=== PATIENT | male | born 1950 | race Hispanic/Latino ===

== ENCOUNTER → 2019-02-21 | Outpatient (CLI) | payer OTHER ==
[~2019-02-21] MED LIST: LISI2.5T2 PO; METF-445 PO; PRAV20TA4 PO
== END | disposition home or self-care (01) ==
LOC: SHCH 10:32
PROVIDERS: ATTEND Internal Medicine Cardiovascular Disease
DX: I65.23 Occlusion and stenosis of bilateral carotid arteries (principal); I25.10 Atherosclerotic heart disease of native coronary artery without angina pectoris
CPT/HCPCS: 93880

== ENCOUNTER 2021-11-07 20:54 | Inpatient (IN) | payer OTHER ==
[~2021-11-07] VITALS: Ht 177.8 cm; Wt 78.9 kg
[~2021-11-07 20:54] MED LIST changes: +LISI2.5T13 PO; -LISI2.5T2 PO
[2021-11-07 21:30] LABS: BASOPHILS % (AUTO) 0.4 % (0.0-5.0); EOSINOPHILS % (AUTO) 2.6 % (0.0-8.0); HEMATOCRIT 38.2 % (42-54); LYMPHOCYTES % (AUTO) 19.2 % (21.0-51.0); MEAN CORPUSCULAR HEMOGLOBIN 28.3 pg (27.0-33.0); MEAN CORPUSCULAR HGB CONC 31.2 g/dL (32.0-36.0); MONOCYTES % (AUTO) 9.2 % (3.0-13.0); NEUTROPHILS % (AUTO) 68.3 % (40.0-77.0); PLATELET COUNT (AUTO) 243 K/uL (130-400); RED CELL DISTRIBUTION WIDTH 13.6 % (11.0-15.5); WHITE BLOOD COUNT (AUTO) 10.2 K/uL (4.8-10.8)
[2021-11-07 21:46] LABS: INR 0.99 (0.85-1.15); PROTHROMBIN TIME 10.8 SEC (9.6-11.6)
[2021-11-07 21:47] LABS: CREATININE 1.2 mg/dL (0.5-1.5); POTASSIUM 4.1 mmol/L (3.5-5.1)
[2021-11-07 21:48] LABS: PARTIAL THROMBOPLASTIN TIME 27.6 SEC (26.3-35.5)
[2021-11-07 21:49] LABS: ALBUMIN 3.4 g/dL (3.5-5.0); BILIRUBIN,TOTAL 0.3 mg/dL (0.2-1.0)
[2021-11-07] MEDS ORDERED: ZOSYN 3.375GM +NS 50ML IV ONE (22:30)
[2021-11-07] MEDS ORDERED: 0.9%NACL 1000ML 1,000 ML IV ONE (22:30)
[2021-11-07] MEDS ORDERED: HYDROMORPHONE 1 MG INJ IVP PRN (23:00)
[2021-11-07] MEDS ORDERED: HYDRALAZINE 20MG/ML VIAL IV PRN (23:00)
[2021-11-07] MEDS ORDERED: ACETAMINOPHEN 325 MG TAB PO PRN (23:00)
[2021-11-07] MEDS ORDERED: ALBUTEROL 0.083% 2.5 MG/3 ML INH IH PRN (23:00)
[2021-11-07] MEDS ORDERED: DOCUSATE SODIUM 100 MG CAP PO PRN (23:00)
[2021-11-07] MEDS: ZOSYN 3.375GM +NS 50ML IV SCH (23:00)
[2021-11-07] MEDS ORDERED: ONDANSETRON 4MG INJ IVP PRN (23:00)
[2021-11-07] MEDS ORDERED: ACETAMINOPHEN 650 MG SUPPOSITORY RC PRN (23:00)
[2021-11-07] MEDS ORDERED: LACTULOSE 20 GM/30 ML UDCUP PO PRN (23:00)
[2021-11-07] MEDS: PHARMACY COMMUNICATION MISC SCH (23:30)
[2021-11-07] MEDS: 0.9%NACL 1000ML 1,000 ML IV SCH (23:45)
[2021-11-08] MEDS: INSULIN LISPRO 100 UNIT/ML 3ML SQ SCH ×4 (07:30→21:23)
[2021-11-08] MEDS: ZOSYN 3.375GM +NS 50ML IV SCH ×3 (07:36→23:33)
[2021-11-08] MEDS: ENOXAPARIN SODIUM 30 MG/0.3 ML SQ SCH (08:57)
[2021-11-08 09:19] LABS: HEMATOCRIT 37.5 % (42-54); MEAN CORPUSCULAR HEMOGLOBIN 29.4 pg (27.0-33.0); MEAN CORPUSCULAR HGB CONC 31.7 g/dL (32.0-36.0); MEAN CORPUSCULAR VOLUME 92.6 fL (79-99); RED BLOOD CELL COUNT(AUTO) 4.05 MIL/uL (4.50-6.20); RED CELL DISTRIBUTION WIDTH 13.5 % (11.0-15.5); WHITE BLOOD COUNT (AUTO) 9.9 K/uL (4.8-10.8)
[2021-11-08 09:20] VITALS: BP 136/62
[2021-11-08 09:32] LABS: CREATININE 0.9 mg/dL (0.5-1.5); MAGNESIUM 1.9 mg/dL (1.80-2.40); PHOSPHORUS 3.1 mg/dL (2.5-4.9); POTASSIUM 4.1 mmol/L (3.5-5.1)
[2021-11-08] MEDS: PHARMACY COMMUNICATION MISC SCH ×2 (11:30→23:30)
[2021-11-08 12:00] VITALS: BP 136/66
[2021-11-08] MEDS: CLINDAMYCIN IVPB 600MG/50ML 50 ML IV SCH ×2 (12:06→18:58)
[2021-11-08] MEDS: 0.9%NACL 1000ML 1,000 ML IV SCH (12:20)
[2021-11-08 16:00] VITALS: BP 117/82
[2021-11-08 20:20] VITALS: BP 119/68
[2021-11-08] MEDS ORDERED: VANCOMYCIN 1G 1.25 GM in 0.9% NACL 250ML 250 ML IVPB SCH (21:00)
[2021-11-08] MEDS ORDERED: VANCOMYCIN 1.25 GM/250 ML BAG 250 ML IV SCH (21:00)
[2021-11-09 00:20] VITALS: BP 120/63
[2021-11-09 04:20] VITALS: BP 134/69
[2021-11-09 05:40] LABS: BASOPHILS % (AUTO) 0.3 % (0.0-5.0); EOSINOPHILS % (AUTO) 2.6 % (0.0-8.0); HEMATOCRIT 34.1 % (42-54); LYMPHOCYTES % (AUTO) 13.8 % (21.0-51.0); MEAN CORPUSCULAR HEMOGLOBIN 28.1 pg (27.0-33.0); MEAN CORPUSCULAR HGB CONC 31.1 g/dL (32.0-36.0); MEAN CORPUSCULAR VOLUME 90.5 fL (79-99); MONOCYTES % (AUTO) 9.5 % (3.0-13.0); NEUTROPHILS % (AUTO) 73.6 % (40.0-77.0); PLATELET COUNT (AUTO) 229 K/uL (130-400); RED BLOOD CELL COUNT(AUTO) 3.77 MIL/uL (4.50-6.20); RED CELL DISTRIBUTION WIDTH 13.4 % (11.0-15.5); WHITE BLOOD COUNT (AUTO) 8.8 K/uL (4.8-10.8)
[2021-11-09 06:04] LABS: ALBUMIN 2.6 g/dL (3.5-5.0); BILIRUBIN,TOTAL 0.5 mg/dL (0.2-1.0); CREATININE 0.9 mg/dL (0.5-1.5); MAGNESIUM 1.9 mg/dL (1.80-2.40); PHOSPHORUS 3.4 mg/dL (2.5-4.9); POTASSIUM 4.1 mmol/L (3.5-5.1); TOTAL PROTEIN, SERUM 6.9 g/dL (6.0-8.3)
[2021-11-09] MEDS: INSULIN LISPRO 100 UNIT/ML 3ML SQ SCH ×4 (06:05→20:30)
[2021-11-09] MEDS: 0.9%NACL 1000ML 1,000 ML IV SCH ×2 (06:31→15:00)
[2021-11-09] MEDS: ZOSYN 3.375GM +NS 50ML IV SCH ×2 (06:48→15:36)
[2021-11-09 08:00] VITALS: BP 132/62
[2021-11-09] MEDS: ENOXAPARIN SODIUM 30 MG/0.3 ML SQ SCH (10:01)
[2021-11-09] MEDS ORDERED: ATOR40TA71 PO (10:11)
[2021-11-09] MEDS ORDERED: METO-409 PO (10:11)
[2021-11-09] MEDS ORDERED: LISI40TA9 PO (10:11)
[2021-11-09] MEDS ORDERED: AMLO-258 PO (10:11)
[2021-11-09] MEDS ORDERED: EMPA10TA PO (10:11)
[2021-11-09] MEDS ORDERED: METF-446 PO (10:11)
[2021-11-09] MEDS: PHARMACY COMMUNICATION MISC SCH ×2 (11:30→23:30)
[2021-11-09 11:53] VITALS: BP 129/64
[2021-11-09] MEDS ORDERED: GADOTERATE MEGLUMINE 10 MMOL/20 ML VIAL IV ONE (13:50)
[2021-11-09] MEDS ORDERED: 0.9% NACL 250ML 250 ML IV SCH ×2 (13:59→22:00)
[2021-11-09] MEDS ORDERED: VANCOMYCIN 750MG VIAL IVPB SCH ×2 (14:00→22:00)
[2021-11-09 16:00] VITALS: BP 159/81
[2021-11-09 20:20] VITALS: BP 130/75
[2021-11-10] MEDS: ZOSYN 3.375GM +NS 50ML IV SCH ×4 (00:13→22:54)
[2021-11-10 00:20] VITALS: BP 129/67
[2021-11-10] MEDS ORDERED: VANCOMYCIN 750MG VIAL IVPB SCH (03:30)
[2021-11-10] MEDS ORDERED: 0.9% NACL 250ML 250 ML IV SCH (03:30)
[2021-11-10] MEDS ORDERED: 0.9% NACL 250ML IVPB SCH (03:30)
[2021-11-10] MEDS ORDERED: VANCOMYCIN 750MG VIAL ONE (04:05)
[2021-11-10 04:24] VITALS: BP 119/63
[2021-11-10 04:56] LABS: BASOPHILS % (AUTO) 0.4 % (0.0-5.0); EOSINOPHILS % (AUTO) 2.4 % (0.0-8.0); HEMATOCRIT 36.7 % (42-54); LYMPHOCYTES % (AUTO) 14.3 % (21.0-51.0); MEAN CORPUSCULAR HEMOGLOBIN 28.8 pg (27.0-33.0); MEAN CORPUSCULAR HGB CONC 32.2 g/dL (32.0-36.0); MEAN CORPUSCULAR VOLUME 89.5 fL (79-99); MONOCYTES % (AUTO) 9.9 % (3.0-13.0); NEUTROPHILS % (AUTO) 72.4 % (40.0-77.0); PLATELET COUNT (AUTO) 259 K/uL (130-400); RED CELL DISTRIBUTION WIDTH 13.3 % (11.0-15.5); WHITE BLOOD COUNT (AUTO) 9.6 K/uL (4.8-10.8)
[2021-11-10 05:10] LABS: ALBUMIN 2.7 g/dL (3.5-5.0); BILIRUBIN,TOTAL 0.5 mg/dL (0.2-1.0); CREATININE 0.9 mg/dL (0.5-1.5); MAGNESIUM 1.8 mg/dL (1.80-2.40); PHOSPHORUS 3.8 mg/dL (2.5-4.9); POTASSIUM 4.1 mmol/L (3.5-5.1); TOTAL PROTEIN, SERUM 7.4 g/dL (6.0-8.3)
[2021-11-10] MEDS: INSULIN LISPRO 100 UNIT/ML 3ML SQ SCH ×4 (06:34→20:41)
[2021-11-10 07:30] VITALS: BP 136/66
[2021-11-10] MEDS: ENOXAPARIN SODIUM 30 MG/0.3 ML SQ SCH (10:26)
[2021-11-10] MEDS: PHARMACY COMMUNICATION MISC SCH ×2 (10:37→10:38)
[2021-11-10 11:00] VITALS: BP 140/65
[2021-11-10] MEDS: 0.9%NACL 1000ML 1,000 ML IV SCH ×2 (15:54→16:41)
[2021-11-10 16:00] VITALS: BP 136/68
[2021-11-10] MEDS: HYDROCODONE/ACETAMINOPHEN 5/325 MG TAB PO PRN (16:00)
[2021-11-10 20:03] VITALS: BP 149/75
[2021-11-11] VITALS (15 sets, daily range): BP systolic 105–148; BP diastolic 67–101
[2021-11-11 04:47] LABS: BASOPHILS % (AUTO) 0.2 % (0.0-5.0); EOSINOPHILS % (AUTO) 1.6 % (0.0-8.0); HEMATOCRIT 36.8 % (42-54); LYMPHOCYTES % (AUTO) 11.3 % (21.0-51.0); MEAN CORPUSCULAR HEMOGLOBIN 27.9 pg (27.0-33.0); MEAN CORPUSCULAR VOLUME 90.2 fL (79-99); MONOCYTES % (AUTO) 10.2 % (3.0-13.0); NEUTROPHILS % (AUTO) 76.1 % (40.0-77.0); PLATELET COUNT (AUTO) 250 K/uL (130-400); RED BLOOD CELL COUNT(AUTO) 4.08 MIL/uL (4.50-6.20); RED CELL DISTRIBUTION WIDTH 13.2 % (11.0-15.5); WHITE BLOOD COUNT (AUTO) 9.8 K/uL (4.8-10.8)
[2021-11-11 04:59] LABS: INR 1.02 (0.85-1.15); PROTHROMBIN TIME 11.1 SEC (9.6-11.6)
[2021-11-11 05:08] LABS: ALBUMIN 2.6 g/dL (3.5-5.0); BILIRUBIN,TOTAL 0.4 mg/dL (0.2-1.0); CREATININE 1.1 mg/dL (0.5-1.5); PHOSPHORUS 3.9 mg/dL (2.5-4.9); POTASSIUM 3.9 mmol/L (3.5-5.1); TOTAL PROTEIN, SERUM 7.2 g/dL (6.0-8.3)
[2021-11-11] MEDS: INSULIN LISPRO 100 UNIT/ML 3ML SQ SCH ×4 (07:30→21:00)
[2021-11-11] MEDS: ZOSYN 3.375GM +NS 50ML IV SCH ×3 (08:29→23:33)
[2021-11-11] MEDS: 0.9%NACL 1000ML 1,000 ML IV SCH (08:29)
[2021-11-11] MEDS: VANCOMYCIN 750MG VIAL IVPB SCH ×2 (09:00→21:55)
[2021-11-11] MEDS: ASPIRIN 81MG CHEW TAB PO SCH (09:00)
[2021-11-11] MEDS: ENOXAPARIN SODIUM 30 MG/0.3 ML SQ SCH (09:00)
[2021-11-11] MEDS ORDERED: 0.9% NACL 250ML 250 ML IV SCH (10:00)
[2021-11-11] MEDS ORDERED: MIDAZOLAM HCL 1 MG/ML 2ML VIAL ONE (14:11)
[2021-11-11] MEDS ORDERED: NITROGLYCERIN 50MG VIAL ONE (14:11)
[2021-11-11] MEDS ORDERED: FENTANYL CITRATE PF 50 MCG/1 ML 2ML VIAL ONE (14:11)
[2021-11-11] MEDS ORDERED: HEPARIN 10,000 UNIT/10ML (1,000 UNIT/ML) VIAL ONE (14:11)
[2021-11-11] MEDS ORDERED: LIDOCAINE HCL 400MG/20ML VIAL ONE (14:12)
[2021-11-11] MEDS ORDERED: IODIXANOL 320 MG/ML 100 ML VIAL ONE (15:09)
[2021-11-11] MEDS ORDERED: LABETALOL 20MG VIAL IV ONE (15:20)
[2021-11-11] MEDS ORDERED: IOHEXOL-350 50ML VIAL IV ONE (15:52)
[2021-11-11] MEDS ORDERED: 0.9%NACL 1000ML 1,000 ML IV SCH (16:30)
[2021-11-11] MEDS ORDERED: NITROGLYCERIN 0.4 MG SL TAB SL PRN (16:30)
[2021-11-11] MEDS: HYDROCODONE/ACETAMINOPHEN 5/325 MG TAB PO PRN (18:08)
[2021-11-11] MEDS: ATORVASTATIN 40 MG TABLET PO SCH (21:54)
[2021-11-12 03:09] VITALS: BP 113/61
[2021-11-12 04:59] LABS: BASOPHILS % (AUTO) 0.2 % (0.0-5.0); EOSINOPHILS % (AUTO) 1.2 % (0.0-8.0); HEMATOCRIT 34.1 % (42-54); LYMPHOCYTES % (AUTO) 13.6 % (21.0-51.0); MEAN CORPUSCULAR HEMOGLOBIN 29.2 pg (27.0-33.0); MEAN CORPUSCULAR HGB CONC 32.6 g/dL (32.0-36.0); MEAN CORPUSCULAR VOLUME 89.7 fL (79-99); MONOCYTES % (AUTO) 11.7 % (3.0-13.0); NEUTROPHILS % (AUTO) 72.6 % (40.0-77.0); PLATELET COUNT (AUTO) 262 K/uL (130-400); RED CELL DISTRIBUTION WIDTH 13.4 % (11.0-15.5); WHITE BLOOD COUNT (AUTO) 9.7 K/uL (4.8-10.8)
[2021-11-12 05:20] LABS: ALBUMIN 2.4 g/dL (3.5-5.0); POTASSIUM 3.8 mmol/L (3.5-5.1)
[2021-11-12 05:34] LABS: BILIRUBIN,TOTAL 0.4 mg/dL (0.2-1.0)
[2021-11-12 07:28] VITALS: BP 133/64
[2021-11-12] MEDS: INSULIN LISPRO 100 UNIT/ML 3ML SQ SCH ×4 (07:30→21:00)
[2021-11-12] MEDS: ZOSYN 3.375GM +NS 50ML IV SCH ×3 (10:04→23:58)
[2021-11-12] MEDS: VANCOMYCIN 750MG VIAL IVPB SCH ×2 (10:04→22:15)
[2021-11-12] MEDS: ENOXAPARIN SODIUM 30 MG/0.3 ML SQ SCH (10:05)
[2021-11-12] MEDS: AMLODIPINE 5 MG TAB PO SCH (10:05)
[2021-11-12] MEDS: LISINOPRIL 40 MG TABLET PO SCH (10:06)
[2021-11-12] MEDS: ASPIRIN 81MG CHEW TAB PO SCH (10:06)
[2021-11-12] MEDS: METOPROLOL SUCCINATE 50 MG TAB.SR.24H PO SCH ×2 (10:06→22:16)
[2021-11-12 11:16] VITALS: BP 165/71
[2021-11-12] MEDS: HYDROCODONE/ACETAMINOPHEN 5/325 MG TAB PO PRN (11:47)
[2021-11-12 15:30] VITALS: BP 114/61
[2021-11-12] MEDS: 0.9%NACL 1000ML 1,000 ML IV SCH (18:49)
[2021-11-12 20:00] VITALS: BP 137/60
[2021-11-12] MEDS: ATORVASTATIN 40 MG TABLET PO SCH (22:16)
[2021-11-12 23:59] VITALS: BP 140/68
[2021-11-13 04:00] VITALS: BP 125/69
[2021-11-13 05:23] LABS: HEMATOCRIT 32.9 % (42-54); MEAN CORPUSCULAR HGB CONC 30.7 g/dL (32.0-36.0); MEAN CORPUSCULAR VOLUME 91.1 fL (79-99); RED BLOOD CELL COUNT(AUTO) 3.61 MIL/uL (4.50-6.20); RED CELL DISTRIBUTION WIDTH 13.2 % (11.0-15.5); WHITE BLOOD COUNT (AUTO) 9.7 K/uL (4.8-10.8)
[2021-11-13 05:36] LABS: CREATININE 0.9 mg/dL (0.5-1.5); POTASSIUM 3.5 mmol/L (3.5-5.1)
[2021-11-13 05:49] LABS: HEMOGLOBIN A1C 7.6 % (4.0-6.0)
[2021-11-13] MEDS: INSULIN LISPRO 100 UNIT/ML 3ML SQ SCH ×4 (07:30→20:24)
[2021-11-13 08:00] VITALS: BP 139/64
[2021-11-13] MEDS: ZOSYN 3.375GM +NS 50ML IV SCH ×2 (08:30→17:54)
[2021-11-13] MEDS: ASPIRIN 81MG CHEW TAB PO SCH (08:34)
[2021-11-13] MEDS: LISINOPRIL 40 MG TABLET PO SCH (08:35)
[2021-11-13] MEDS: METOPROLOL SUCCINATE 50 MG TAB.SR.24H PO SCH ×2 (08:36→20:20)
[2021-11-13] MEDS: AMLODIPINE 5 MG TAB PO SCH (08:36)
[2021-11-13] MEDS: ENOXAPARIN SODIUM 30 MG/0.3 ML SQ SCH (08:37)
[2021-11-13] MEDS: VANCOMYCIN 750MG VIAL IVPB SCH ×2 (08:44→20:20)
[2021-11-13 12:00] VITALS: BP 112/51
[2021-11-13 15:58] VITALS: BP 122/57
[2021-11-13 20:00] VITALS: BP 120/50
[2021-11-13] MEDS: ATORVASTATIN 40 MG TABLET PO SCH (20:20)
[2021-11-13] MEDS: 0.9%NACL 1000ML 1,000 ML IV SCH (20:21)
[2021-11-14] VITALS: BP 126/54
[2021-11-14] MEDS: ZOSYN 3.375GM +NS 50ML IV SCH ×4 (02:33→22:09)
[2021-11-14 04:00] VITALS: BP 120/52
[2021-11-14 04:57] LABS: PROTHROMBIN TIME 10.9 SEC (9.6-11.6)
[2021-11-14 05:07] LABS: BASOPHILS % (AUTO) 0.2 % (0.0-5.0); EOSINOPHILS % (AUTO) 4.2 % (0.0-8.0); LYMPHOCYTES % (AUTO) 15.4 % (21.0-51.0); MEAN CORPUSCULAR HEMOGLOBIN 27.9 pg (27.0-33.0); MEAN CORPUSCULAR HGB CONC 30.6 g/dL (32.0-36.0); MEAN CORPUSCULAR VOLUME 91.2 fL (79-99); MONOCYTES % (AUTO) 8.9 % (3.0-13.0); NEUTROPHILS % (AUTO) 70.6 % (40.0-77.0); PLATELET COUNT (AUTO) 261 K/uL (130-400); RED BLOOD CELL COUNT(AUTO) 3.51 MIL/uL (4.50-6.20); RED CELL DISTRIBUTION WIDTH 13.2 % (11.0-15.5); WHITE BLOOD COUNT (AUTO) 8.5 K/uL (4.8-10.8)
[2021-11-14 05:14] LABS: BILIRUBIN,TOTAL 0.3 mg/dL (0.2-1.0); POTASSIUM 3.6 mmol/L (3.5-5.1); TOTAL PROTEIN, SERUM 6.3 g/dL (6.0-8.3)
[2021-11-14] MEDS: INSULIN LISPRO 100 UNIT/ML 3ML SQ SCH ×4 (06:17→21:58)
[2021-11-14 08:00] VITALS: BP 152/63
[2021-11-14] MEDS: ENOXAPARIN SODIUM 30 MG/0.3 ML SQ SCH (10:28)
[2021-11-14] MEDS: METOPROLOL SUCCINATE 50 MG TAB.SR.24H PO SCH ×2 (10:28→21:37)
[2021-11-14] MEDS: AMLODIPINE 5 MG TAB PO SCH (10:29)
[2021-11-14] MEDS: ASPIRIN 81MG CHEW TAB PO SCH (10:29)
[2021-11-14] MEDS: LISINOPRIL 40 MG TABLET PO SCH (10:30)
[2021-11-14] MEDS: VANCOMYCIN 750MG VIAL IVPB SCH ×2 (10:36→22:08)
[2021-11-14 12:00] VITALS: BP 140/57
[2021-11-14 16:00] VITALS: BP 136/62
[2021-11-14 20:00] VITALS: BP 132/59
[2021-11-14] MEDS: ATORVASTATIN 40 MG TABLET PO SCH (21:37)
[2021-11-15] VITALS: BP 145/64
[2021-11-15 04:23] VITALS: BP 173/75
[2021-11-15] MEDS: INSULIN LISPRO 100 UNIT/ML 3ML SQ SCH ×4 (06:57→21:00)
[2021-11-15] MEDS: ZOSYN 3.375GM +NS 50ML IV SCH ×2 (06:57→15:52)
[2021-11-15 08:00] VITALS: BP 149/65
[2021-11-15] MEDS: ASPIRIN 81MG CHEW TAB PO SCH (09:28)
[2021-11-15] MEDS: ENOXAPARIN SODIUM 30 MG/0.3 ML SQ SCH (09:28)
[2021-11-15] MEDS: AMLODIPINE 5 MG TAB PO SCH (09:30)
[2021-11-15] MEDS: METOPROLOL SUCCINATE 50 MG TAB.SR.24H PO SCH ×2 (09:32→21:53)
[2021-11-15] MEDS: VANCOMYCIN 750MG VIAL IVPB SCH ×2 (09:33→21:53)
[2021-11-15] MEDS: LISINOPRIL 40 MG TABLET PO SCH (11:45)
[2021-11-15 12:00] VITALS: BP 128/63
[2021-11-15 16:00] VITALS: BP 132/67
[2021-11-15 19:45] VITALS: BP 118/71
[2021-11-15] MEDS: ATORVASTATIN 40 MG TABLET PO SCH (21:53)
[2021-11-16] VITALS (7 sets, daily range): BP systolic 118–145; BP diastolic 49–75
[2021-11-16] MEDS: ZOSYN 3.375GM +NS 50ML IV SCH ×3 (00:38→15:20)
[2021-11-16 05:36] LABS: BASOPHILS % (AUTO) 0.4 % (0.0-5.0); EOSINOPHILS % (AUTO) 4.6 % (0.0-8.0); LYMPHOCYTES % (AUTO) 15.4 % (21.0-51.0); MEAN CORPUSCULAR HEMOGLOBIN 28.7 pg (27.0-33.0); MEAN CORPUSCULAR HGB CONC 32.7 g/dL (32.0-36.0); MONOCYTES % (AUTO) 9.1 % (3.0-13.0); PLATELET COUNT (AUTO) 281 K/uL (130-400); RED BLOOD CELL COUNT(AUTO) 3.41 MIL/uL (4.50-6.20); RED CELL DISTRIBUTION WIDTH 13.2 % (11.0-15.5); WHITE BLOOD COUNT (AUTO) 8.4 K/uL (4.8-10.8)
[2021-11-16] MEDS: INSULIN LISPRO 100 UNIT/ML 3ML SQ SCH ×4 (06:08→21:03)
[2021-11-16 06:12] LABS: ALBUMIN 2.1 g/dL (3.5-5.0); BILIRUBIN,TOTAL 0.3 mg/dL (0.2-1.0); CREATININE 0.8 mg/dL (0.5-1.5); POTASSIUM 3.4 mmol/L (3.5-5.1); TOTAL PROTEIN, SERUM 6.5 g/dL (6.0-8.3)
[2021-11-16] MEDS: ENOXAPARIN SODIUM 30 MG/0.3 ML SQ SCH (09:58)
[2021-11-16] MEDS: VANCOMYCIN 750MG VIAL IVPB SCH ×2 (09:59→21:04)
[2021-11-16] MEDS ORDERED: POTASSIUM CHLORIDE 10% ELIXIR 20 MEQ/15 ML UDCUP PO PRN (10:00)
[2021-11-16] MEDS ORDERED: LIDOCAINE HCL-MPF 1% 2ML VIAL IV PRN (10:00)
[2021-11-16] MEDS ORDERED: POTASSIUM CHLORIDE 20MEQ/100ML 100 ML IV PRN (10:00)
[2021-11-16] MEDS: LISINOPRIL 40 MG TABLET PO SCH (10:03)
[2021-11-16] MEDS: AMLODIPINE 5 MG TAB PO SCH (10:07)
[2021-11-16] MEDS: ASPIRIN 81MG CHEW TAB PO SCH (10:08)
[2021-11-16] MEDS: CLOPIDOGREL 75MG TAB PO SCH (10:09)
[2021-11-16] MEDS: KCL 20 MEQ ERTAB PO PRN ×2 (10:21→12:43)
[2021-11-16] MEDS: METOPROLOL SUCCINATE 50 MG TAB.SR.24H PO SCH ×2 (11:00→21:04)
[2021-11-16] MEDS: ATORVASTATIN 40 MG TABLET PO SCH (21:04)
[2021-11-17] VITALS (28 sets, daily range): BP systolic 117–184; BP diastolic 47–79
[2021-11-17] MEDS: ZOSYN 3.375GM +NS 50ML IV SCH ×4 (00:18→23:44)
[2021-11-17 05:13] LABS: HEMATOCRIT 34.2 % (42-54); MEAN CORPUSCULAR HEMOGLOBIN 28.2 pg (27.0-33.0); MEAN CORPUSCULAR HGB CONC 31.3 g/dL (32.0-36.0); MEAN CORPUSCULAR VOLUME 90.2 fL (79-99); RED BLOOD CELL COUNT(AUTO) 3.79 MIL/uL (4.50-6.20); RED CELL DISTRIBUTION WIDTH 13.2 % (11.0-15.5); WHITE BLOOD COUNT (AUTO) 9.6 K/uL (4.8-10.8)
[2021-11-17 05:22] LABS: CREATININE 0.9 mg/dL (0.5-1.5); POTASSIUM 5.2 mmol/L (3.5-5.1)
[2021-11-17 05:25] LABS: INR 1.01 (0.85-1.15)
[2021-11-17 05:26] LABS: PARTIAL THROMBOPLASTIN TIME 28.6 SEC (26.3-35.5)
[2021-11-17] MEDS: INSULIN LISPRO 100 UNIT/ML 3ML SQ SCH ×4 (06:26→20:10)
[2021-11-17] MEDS: ENOXAPARIN SODIUM 30 MG/0.3 ML SQ SCH (06:54)
[2021-11-17] MEDS: ASPIRIN 81MG CHEW TAB PO SCH (06:55)
[2021-11-17] MEDS: CLOPIDOGREL 75MG TAB PO SCH (06:55)
[2021-11-17] MEDS: AMLODIPINE 5 MG TAB PO SCH (06:55)
[2021-11-17] MEDS: LISINOPRIL 40 MG TABLET PO SCH (06:55)
[2021-11-17] MEDS: VANCOMYCIN 750MG VIAL IVPB SCH (07:33)
[2021-11-17] MEDS: METOPROLOL SUCCINATE 50 MG TAB.SR.24H PO SCH ×2 (07:37→20:10)
[2021-11-17] MEDS ORDERED: 0.9%NACL 1000ML 1,000 ML IV ONE (13:39)
[2021-11-17] MEDS ORDERED: MIDAZOLAM HCL 1 MG/ML 2ML VIAL ONE (14:56)
[2021-11-17] MEDS ORDERED: PROPOFOL 10 MG/ML 20ML VIAL IV ONE (14:56)
[2021-11-17] MEDS ORDERED: FENTANYL CITRATE PF 50 MCG/1 ML 5ML AMP IV ONE (14:56)
[2021-11-17] MEDS ORDERED: ROCURONIUM 10MG/1ML SYR 10 MG/ML ML ONE ×2 (15:03→15:54)
[2021-11-17] MEDS ORDERED: CEFAZOLIN SODIUM 1 GM VIAL ONE (16:01)
[2021-11-17] MEDS ORDERED: FENTANYL CITRATE PF 50 MCG/1 ML 2ML VIAL ONE (16:32)
[2021-11-17] MEDS ORDERED: TRAMADOL HCL 50 MG TABLET PO PRN ×2 (17:00)
[2021-11-17] MEDS ORDERED: GLYCOPYRROLATE 1 MG/5 ML SYRINGE ONE (17:37)
[2021-11-17] MEDS ORDERED: NEOSTIGMINE 5MG/5ML SYR IV ONE (17:37)
[2021-11-17] MEDS ORDERED: ONDANSETRON 4MG INJ ONE (17:45)
[2021-11-17] MEDS ORDERED: HYDRALAZINE 20MG/ML VIAL IV PRN ×2 (18:00→18:30)
[2021-11-17] MEDS ORDERED: KAYEXALATE 15GM/60ML PO ONE (18:30)
[2021-11-17] MEDS ORDERED: HYDRALAZINE 20MG/ML VIAL IV ONE (18:30)
[2021-11-17] MEDS: ATORVASTATIN 40 MG TABLET PO SCH (20:10)
[2021-11-17 20:25] LABS: POTASSIUM 3.6 mmol/L (3.5-5.1)
[2021-11-17] MEDS: VANCOMYCIN 1.25 GM/250 ML BAG 250 ML IV SCH (21:25)
[2021-11-18] VITALS (27 sets, daily range): BP systolic 92–132; BP diastolic 31–73
[2021-11-18 03:49] LABS: BASOPHILS % (AUTO) 0.3 % (0.0-5.0); EOSINOPHILS % (AUTO) 1.6 % (0.0-8.0); HEMATOCRIT 32.7 % (42-54); LYMPHOCYTES % (AUTO) 9.6 % (21.0-51.0); MEAN CORPUSCULAR HEMOGLOBIN 27.9 pg (27.0-33.0); MEAN CORPUSCULAR HGB CONC 31.2 g/dL (32.0-36.0); MEAN CORPUSCULAR VOLUME 89.3 fL (79-99); MONOCYTES % (AUTO) 8.6 % (3.0-13.0); NEUTROPHILS % (AUTO) 79.1 % (40.0-77.0); PLATELET COUNT (AUTO) 309 K/uL (130-400); RED BLOOD CELL COUNT(AUTO) 3.66 MIL/uL (4.50-6.20); RED CELL DISTRIBUTION WIDTH 13.2 % (11.0-15.5); WHITE BLOOD COUNT (AUTO) 9.9 K/uL (4.8-10.8)
[2021-11-18 04:28] LABS: ALBUMIN 2.2 g/dL (3.5-5.0); BILIRUBIN,TOTAL 0.2 mg/dL (0.2-1.0); CREATININE 0.7 mg/dL (0.5-1.5); POTASSIUM 3.8 mmol/L (3.5-5.1); TOTAL PROTEIN, SERUM 6.4 g/dL (6.0-8.3)
[2021-11-18] MEDS: INSULIN LISPRO 100 UNIT/ML 3ML SQ SCH ×4 (06:50→21:00)
[2021-11-18] MEDS: ZOSYN 3.375GM +NS 50ML IV SCH ×3 (06:55→23:59)
[2021-11-18] MEDS: ENOXAPARIN SODIUM 30 MG/0.3 ML SQ SCH (08:37)
[2021-11-18] MEDS: METOPROLOL SUCCINATE 50 MG TAB.SR.24H PO SCH ×2 (08:38→22:15)
[2021-11-18] MEDS: CLOPIDOGREL 75MG TAB PO SCH (08:38)
[2021-11-18] MEDS: AMLODIPINE 5 MG TAB PO SCH (08:38)
[2021-11-18] MEDS: LISINOPRIL 40 MG TABLET PO SCH (08:38)
[2021-11-18] MEDS: ASPIRIN 81MG CHEW TAB PO SCH (08:38)
[2021-11-18] MEDS: VANCOMYCIN 1.25 GM/250 ML BAG 250 ML IV SCH ×2 (08:39→22:16)
[2021-11-18] MEDS: ATORVASTATIN 40 MG TABLET PO SCH (22:15)
[2021-11-19] VITALS (8 sets, daily range): BP systolic 109–129; BP diastolic 44–57
[2021-11-19] MEDS: ZOSYN 3.375GM +NS 50ML IV SCH ×3 (06:56→23:29)
[2021-11-19] MEDS: INSULIN LISPRO 100 UNIT/ML 3ML SQ SCH ×4 (07:30→21:07)
[2021-11-19] MEDS: CLOPIDOGREL 75MG TAB PO SCH (10:18)
[2021-11-19] MEDS: AMLODIPINE 5 MG TAB PO SCH (10:19)
[2021-11-19] MEDS: METOPROLOL SUCCINATE 50 MG TAB.SR.24H PO SCH ×2 (10:19→21:01)
[2021-11-19] MEDS: ASPIRIN 81MG CHEW TAB PO SCH (10:19)
[2021-11-19] MEDS: ENOXAPARIN SODIUM 30 MG/0.3 ML SQ SCH (10:20)
[2021-11-19] MEDS: VANCOMYCIN 1.25 GM/250 ML BAG 250 ML IV SCH (11:12)
[2021-11-19] MEDS: LISINOPRIL 40 MG TABLET PO SCH (15:31)
[2021-11-19] MEDS: ATORVASTATIN 40 MG TABLET PO SCH (21:01)
[2021-11-20] VITALS (27 sets, daily range): BP systolic 101–132; BP diastolic 39–68
[2021-11-20 05:15] LABS: BASOPHILS % (AUTO) 0.5 % (0.0-5.0); EOSINOPHILS % (AUTO) 3.7 % (0.0-8.0); HEMATOCRIT 30.5 % (42-54); LYMPHOCYTES % (AUTO) 14.2 % (21.0-51.0); MEAN CORPUSCULAR HEMOGLOBIN 27.7 pg (27.0-33.0); MEAN CORPUSCULAR HGB CONC 30.8 g/dL (32.0-36.0); MONOCYTES % (AUTO) 11.4 % (3.0-13.0); NEUTROPHILS % (AUTO) 69.5 % (40.0-77.0); PLATELET COUNT (AUTO) 300 K/uL (130-400); RED BLOOD CELL COUNT(AUTO) 3.39 MIL/uL (4.50-6.20); RED CELL DISTRIBUTION WIDTH 13.3 % (11.0-15.5); WHITE BLOOD COUNT (AUTO) 8.9 K/uL (4.8-10.8)
[2021-11-20 05:26] LABS: BILIRUBIN,TOTAL 0.2 mg/dL (0.2-1.0); CREATININE 1.1 mg/dL (0.5-1.5); MAGNESIUM 1.8 mg/dL (1.80-2.40); POTASSIUM 3.4 mmol/L (3.5-5.1); TOTAL PROTEIN, SERUM 6.1 g/dL (6.0-8.3)
[2021-11-20] MEDS: VANCOMYCIN 1G/250ML KIT 250 ML IV SCH ×2 (05:43→17:54)
[2021-11-20] MEDS: ZOSYN 3.375GM +NS 50ML IV SCH ×3 (07:24→22:59)
[2021-11-20] MEDS: INSULIN LISPRO 100 UNIT/ML 3ML SQ SCH ×4 (07:24→20:31)
[2021-11-20] MEDS: CLOPIDOGREL 75MG TAB PO SCH (08:46)
[2021-11-20] MEDS: ENOXAPARIN SODIUM 30 MG/0.3 ML SQ SCH (08:46)
[2021-11-20] MEDS: KCL 20 MEQ ERTAB PO PRN (08:46)
[2021-11-20] MEDS: ASPIRIN 81MG CHEW TAB PO SCH (08:46)
[2021-11-20] MEDS: METOPROLOL SUCCINATE 50 MG TAB.SR.24H PO SCH ×2 (08:48→20:30)
[2021-11-20] MEDS: LISINOPRIL 40 MG TABLET PO SCH (08:48)
[2021-11-20] MEDS: AMLODIPINE 5 MG TAB PO SCH (08:48)
[2021-11-20] MEDS ORDERED: 0.9%NACL 1000ML 1,000 ML IV ONE (14:02)
[2021-11-20] MEDS ORDERED: LIDOCAINE HCL 1% 20 ML VIAL ONE (14:55)
[2021-11-20] MEDS ORDERED: BUPIVACAINE/PF 0.5% 30ML VIAL ONE (14:55)
[2021-11-20] MEDS ORDERED: PROPOFOL 10 MG/ML 20ML VIAL IV ONE (15:04)
[2021-11-20] MEDS ORDERED: FENTANYL CITRATE PF 50 MCG/1 ML 5ML AMP IV ONE (15:05)
[2021-11-20] MEDS ORDERED: PROPOFOL 1000 MG/100 ML 100 ML IV ONE (15:35)
[2021-11-20] MEDS: ATORVASTATIN 40 MG TABLET PO SCH (20:30)
[2021-11-21 03:36] VITALS: BP 115/52
[2021-11-21 05:32] LABS: BASOPHILS % (AUTO) 0.3 % (0.0-5.0); EOSINOPHILS % (AUTO) 2.5 % (0.0-8.0); HEMATOCRIT 31.1 % (42-54); LYMPHOCYTES % (AUTO) 9.8 % (21.0-51.0); MEAN CORPUSCULAR HEMOGLOBIN 28.2 pg (27.0-33.0); MEAN CORPUSCULAR HGB CONC 31.2 g/dL (32.0-36.0); MEAN CORPUSCULAR VOLUME 90.4 fL (79-99); MONOCYTES % (AUTO) 10.1 % (3.0-13.0); NEUTROPHILS % (AUTO) 76.7 % (40.0-77.0); PLATELET COUNT (AUTO) 310 K/uL (130-400); RED BLOOD CELL COUNT(AUTO) 3.44 MIL/uL (4.50-6.20); RED CELL DISTRIBUTION WIDTH 13.5 % (11.0-15.5); WHITE BLOOD COUNT (AUTO) 11.7 K/uL (4.8-10.8)
[2021-11-21] MEDS: VANCOMYCIN 1G/250ML KIT 250 ML IV SCH ×2 (06:00→18:30)
[2021-11-21 06:12] LABS: ALBUMIN 2.1 g/dL (3.5-5.0); BILIRUBIN,TOTAL 0.2 mg/dL (0.2-1.0); CREATININE 1.1 mg/dL (0.5-1.5); MAGNESIUM 1.7 mg/dL (1.80-2.40); PHOSPHORUS 2.9 mg/dL (2.5-4.9); POTASSIUM 4.4 mmol/L (3.5-5.1); TOTAL PROTEIN, SERUM 6.5 g/dL (6.0-8.3)
[2021-11-21] MEDS: INSULIN LISPRO 100 UNIT/ML 3ML SQ SCH ×3 (06:18→16:30)
[2021-11-21] MEDS: ZOSYN 3.375GM +NS 50ML IV SCH ×2 (06:54→14:53)
[2021-11-21 08:00] VITALS: BP 128/77
[2021-11-21] MEDS: CLOPIDOGREL 75MG TAB PO SCH (08:19)
[2021-11-21] MEDS: ASPIRIN 81MG CHEW TAB PO SCH (08:19)
[2021-11-21] MEDS: LISINOPRIL 40 MG TABLET PO SCH (08:19)
[2021-11-21] MEDS: METOPROLOL SUCCINATE 50 MG TAB.SR.24H PO SCH (08:19)
[2021-11-21] MEDS: ENOXAPARIN SODIUM 30 MG/0.3 ML SQ SCH (08:20)
[2021-11-21] MEDS: AMLODIPINE 5 MG TAB PO SCH (08:20)
[2021-11-21] MEDS ORDERED: MAGNESIUM 2GM PREMIX 50ML 50 ML IV PRN (10:30)
[2021-11-21] MEDS ORDERED: MORPHINE 2 MG SYG IVP PRN (11:00)
[2021-11-21] MEDS ORDERED: HYDROMORPHONE 0.5 MG SYG (0.5MG/0.5ML) IVP PRN (11:00)
[2021-11-21 12:00] VITALS: BP 109/39
[2021-11-21 16:00] VITALS: BP 133/57
== END 2021-11-21 18:37 | DRG 240 ==
LOC: EDH 20:54 → EDHIP 22:45 → OBSVTOIN 22:45 → 3CH 11-08 09:20 → 2CH 11-17 16:05 → 2AH 11-18 14:47 → 3DH 11-19 15:13
PROVIDERS: ADMIT Internal Medicine; ATTEND Internal Medicine
PROC: B41D1ZZ Fluoroscopy of Aorta and Bilateral Lower Extremity Arteries using Low Osmolar Contrast (ICD-10-PCS; 2021-11-11)
PROC: 041K09N Bypass Right Femoral Artery to Posterior Tibial Artery with Autologous Venous Tissue, Open Approach (ICD-10-PCS; principal; 2021-11-17 14:00)
PROC: 0Y6M0ZB Detachment at Right Foot, Partial 2nd Ray, Open Approach (ICD-10-PCS; 2021-11-20)
PROC: 0Y6M0ZC Detachment at Right Foot, Partial 3rd Ray, Open Approach (ICD-10-PCS; 2021-11-20)
PROC: 0Y6M0ZD Detachment at Right Foot, Partial 4th Ray, Open Approach (ICD-10-PCS; 2021-11-20)
PROC: 0Y6M0ZF Detachment at Right Foot, Partial 5th Ray, Open Approach (ICD-10-PCS; 2021-11-20)
DX: E11.52 Type 2 diabetes mellitus with diabetic peripheral angiopathy with gangrene (principal); L03.115 Cellulitis of right lower limb; M86.8X7 Other osteomyelitis, ankle and foot; E46 Unspecified protein-calorie malnutrition; I96 Gangrene, not elsewhere classified; E11.69 Type 2 diabetes mellitus with other specified complication; E11.65 Type 2 diabetes mellitus with hyperglycemia; L03.031 Cellulitis of right toe; E11.621 Type 2 diabetes mellitus with foot ulcer; L97.519 Non-pressure chronic ulcer of other part of right foot with unspecified severity; D50.9 Iron deficiency anemia, unspecified; D72.810 Lymphocytopenia; Z20.822 Contact with and (suspected) exposure to COVID-19; E88.09 Other disorders of plasma-protein metabolism, not elsewhere classified; E11.21 Type 2 diabetes mellitus with diabetic nephropathy; I10 Essential (primary) hypertension; E66.9 Obesity, unspecified; E78.00 Pure hypercholesterolemia, unspecified; E78.5 Hyperlipidemia, unspecified; Z79.02 Long term (current) use of antithrombotics/antiplatelets; Z79.82 Long term (current) use of aspirin; Z79.84 Long term (current) use of oral hypoglycemic drugs; Z83.3 Family history of diabetes mellitus; Z79.899 Other long term (current) drug therapy; Z68.25 Body mass index [BMI] 25.0-25.9, adult
CPT/HCPCS: 36246; 36415; 73630; 73720; 75625; 75716; 80048; 80053; 80202; 82948; 83036; 83605; 83735; 84100; 84132; 84145; 85025; 85027; 85347; 85610; 85730; 86850; 86900; 86901; 87040; 87070; 87076; 87077; 87186; 87205; 87635; 93925; 93971; 97039; 99156; 99157; C1769; C1893; C1894; G0378; J0360; J0690; J1644; J1650; J2250; J2405; J2543; J2704; J2710; J3010; J3370; J3475; J3490; J7030; J7050; Q9967